=== PATIENT | female | born 1950 ===

== ENCOUNTER 2019-01-19 07:28 | Inpatient (IN) | payer MEDICARE ==
[2019-01-19 07:43] VITALS: BMI 28.3
[2019-01-19 08:28] LABS: BASO # 0.1 K/uL (0.0-0.2); BASO % 0.9 % (0.0-2.0); EOS # 0.9 K/uL (0.0-0.7); HEMOGLOBIN 10.7 g/dL (11.0-16.0); MEAN CORPUSCULAR HEMOGLOBIN 28.3 pg (27.0-31.0); MEAN CORPUSCULAR HGB CONC 32.2 g/dL (33.0-37.0); MEAN PLATELET VOLUME 10.3 fL (7.2-11.7); MONO # 0.4 K/uL (0.0-0.8); MONO % 4.6 % (0.0-10.0); NEUT # 5.4 K/uL (1.8-7.0); NEUT % 61.5 % (50.0-75.0); NRBC % 0.3 % (0.0-2.0); RBC 3.8 Mil/uL (3.80-5.20); WHITE BLOOD COUNT 8.8 K/uL (4.8-10.8)
[2019-01-19 08:30] LABS: INR 0.9
[2019-01-19 08:31] LABS: MEAN CELL VOLUME 87.8 fL (81.0-99.0)
[2019-01-19 08:34] LABS: BLOOD UREA NITROGEN 32 mg/dL (7-17); CALCIUM 9.5 mg/dl (8.6-10.4); GFR NON-AFRICAN AMERICAN 55
[2019-01-19] MEDS ORDERED: Dextrose 50% SYRINGE Inj (50 ml) ONE (08:46)
[2019-01-19 08:50] LABS: PROTHROMBIN TIME 9.8 SECONDS (9.7-12.2)
[2019-01-19] MEDS ORDERED: Verapamil 2 ML ONE (11:00)
[2019-01-19] MEDS ORDERED: Nitroglycerin 50mg in D5W 50 MG/250 ML BOTTLE IV ONE (11:02)
[2019-01-19] MEDS ORDERED: Midazolam 2 MG/2 ML VIAL ONE (11:03)
[2019-01-19] MEDS ORDERED: Lidocaine 1% 20 MG/2 ML PF AMP ONE ×3 (11:10→11:35)
[2019-01-19] MEDS ORDERED: Heparin25000 units/250ml 1/2NS 25,000 UNITS/250 ML BAG IV ONE (12:01)
[2019-01-19] MEDS ORDERED: Heparin25000 units/250ml 1/2NS 25,000 UNITS/250 ML BAG IV PRN (12:37)
[2019-01-19] MEDS ORDERED: Nitroglycerin 50mg in D5W 50 MG/250 ML BOTTLE IV SCH (12:45)
[2019-01-19] MEDS ORDERED: (Novolog) Insulin Aspart, Recombinant 100 u/ml 10 ml vial SC SCH ×2 (12:45→16:30)
--- NOTE | 2019-01-19 12:50 | CP.PCM.CON ---
<Sergey Abdullahi - Last Filed: 01/19/19 20:15> History of Present Illness - History of Present Illness History of Present Illness: ICU Consult Note for Dr. Tram Kirkpatrick This is a 68 y o female with PMhx HTN, DM, HLD who is s/p cardiac cath and IABP insertion today by Dr. Ramos, which demonstrated severe L main disease. Reason for ICU consult was for monitoring post-procedure and plan for pt transfer for urgent CABG to [facility]. Per pt, she was having cardiac cath performed as part of work-up for CAD, denies any symptoms currently. 12-point ROS obtained, otherwise negative as per pt. PMhx: as noted above Allergies: risendronate sodium Current meds: reviewed as per MAR Fam hx: denies Soc hx: denies smoking, EtOH or illicit drug use Review of Systems - Constitutional Constitutional: absent: Chills, Fever, Headache, Lethargy, Malaise - EENT Eyes: absent: Change in Vision - Cardiovascular Cardiovascular: absent: Chest Pain, Diaphoresis, Dyspnea on Exertion, Pain Radiating to Arm/Neck/Jaw, Leg Edema, Palpitations, Pedal Edema - Respiratory Respiratory: absent: Cough, Dyspnea, Wheezing - Gastrointestinal Gastrointestinal: absent: Abdominal Pain, Constipation, Diarrhea, Nausea, Vomiting Past Patient History - Past Medical History & Family History Past Medical History?: Yes - Past Social History Smoking Status: Never Smoked - CARDIAC Hx Cardiac Disorders: Yes Hx Hypercholesterolemia: Yes Hx Hypertension: Yes Other/Comment: HX: ABNORMAL STRESS TEST - PULMONARY Hx Respiratory Disorders: No - NEUROLOGICAL Hx Neurological Disorder: No - HEENT Hx HEENT Problems: Yes Other/Comment: " HAD SURGERY ON MY EARS DUE TO HEARING DIFFICULTY-I HAVE A HEARING AID ON MY LEFT SIDE." - RENAL Hx Chronic Kidney Disease: Yes Hx Kidney Stones: Yes (PASSED ON OWN) - ENDOCRINE/METABOLIC Hx Endocrine Disorders: Yes Hx Diabetes Mellitus Type 2: Yes - HEMATOLOGICAL/ONCOLOGICAL Hx Blood Disorders: No - INTEGUMENTARY Hx Dermatological Problems: No - MUSCULOSKELETAL/RHEUMATOLOGICAL Hx Musculoskeletal Disorders: Yes Hx Osteoporosis: Yes - GASTROINTESTINAL Hx Gastrointestinal Disorders: No - GENITOURINARY/GYNECOLOGICAL Hx Genitourinary Disorders: Yes Hx Urinary Tract Infection: Yes Other/Comment: HX: FIBROID UTERUS - PSYCHIATRIC Hx Psychophysiologic Disorder: No - SURGICAL HISTORY Hx Surgeries: Yes Hx Hysterectomy: Yes Other/Comment: HX: "EAR SURGERY DUE TO HEARING PROBLEM-I HAVE A HEARING AID ON MY LEFT SIDE." - ANESTHESIA Hx Anesthesia: Yes Hx Anesthesia Reactions: No Hx Malignant Hyperthermia: No Has any member of the family had a problem w/ anesthesia?: No Meds Allergies/Adverse Reactions: Allergies Allergy/AdvReac Type Severity Reaction Status Date / Time risedronate sodium Allergy Intermediate RASH Verified 01/19/19 07:43 [From Actonel] - Medications Medications: Current Medications Aspirin (Aspirin Chewable) 81 mg PO DAILY FRANCISCO Heparin Sodium/Sodium Chloride (Heparin 30466 Units/250ml 1/2 Normal Saline) 25,000 units in 250 mls @ 8.437 mls/hr IV .Q24H PRN; Protocol PRN Reason: ADJUST RATE PER PROTOCOL Nitroglycerin/Dextrose (Nitroglycerin 50 Mg/250 Ml D5w) 50 mg in 250 mls @ 1.5 mls/hr IV .Q24H FRANCISCO; Protocol Insulin Aspart (Novolog) 0 unit SC Q6H FRANCISCO; Protocol Rosuvastatin Calcium (Crestor) 40 mg PO HS FRANCISCO Physical Exam - Constitutional Appears: Non-toxic, No Acute Distress - Head Exam Head Exam: ATRAUMATIC, NORMOCEPHALIC - Eye Exam Eye Exam: EOMI, Normal appearance, PERRL - ENT Exam ENT Exam: Mucous Membranes Moist - Respiratory Exam Respiratory Exam: Clear to Auscultation Bilateral, NORMAL BREATHING PATTERN. absent: Rales, Rhonchi, Wheezes - Cardiovascular Exam Cardiovascular Exam: REGULAR RHYTHM, +S1, +S2. absent: Gallop, Rubs, Systolic Murmur - GI/Abdominal Exam GI & Abdominal Exam: Normal Bowel Sounds, Soft. absent: Distended, Organomegaly, Tenderness - Extremities Exam Extremities exam: Positive for: full ROM, normal capillary refill, normal inspection, pedal pulses present. Negative for: pedal edema - Neurological Exam Neurological exam: Alert, CN II-XII Intact, Oriented x3 - Skin Skin Exam: Dry, Intact, Warm Results - Labs Result Diagrams: 01/19/19 08:13 01/19/19 08:13 Labs: Laboratory Results - last 24 hr 01/19/19 01/19/19 01/19/19 08:13 08:13 08:13 WBC 8.8 RBC 3.80 Hgb 10.7 L Hct 33.4 L MCV 87.8 D MCH 28.3 MCHC 32.2 L RDW 15.0 H Plt Count 314 MPV 10.3 Neut % (Auto) 61.5 Lymph % (Auto) 23.0 Weld % (Auto) 4.6 Eos % (Auto) 10.0 H Baso % (Auto) 0.9 Neut # (Auto) 5.4 Lymph # (Auto) 2.0 Weld # (Auto) 0.4 Eos # (Auto) 0.9 H Baso # (Auto) 0.1 PT 9.8 INR 0.9 APTT 39 H Sodium 138 Potassium 4.3 Chloride 105 Carbon Dioxide 25 Anion Gap 12 BUN 32 H Creatinine 1.0 Est GFR ( Amer) > 60 Est GFR (Non-Af Amer) 55 POC Glucose (mg/dL) Random Glucose 65 D Calcium 9.5 01/19/19 08:32 WBC RBC Hgb Hct MCV MCH MCHC RDW Plt Count MPV Neut % (Auto) Lymph % (Auto) Weld % (Auto) Eos % (Auto) Baso % (Auto) Neut # (Auto) Lymph # (Auto) Weld # (Auto) Eos # (Auto) Baso # (Auto) PT INR APTT Sodium Potassium Chloride Carbon Dioxide Anion Gap BUN Creatinine Est GFR ( Amer) Est GFR (Non-Af Amer) POC Glucose (mg/dL) 68 Random Glucose Calcium Assessment & Plan - Assessment and Plan (Free Text) Assessment: This is a 68 y o female with PMhx HTN, DM, HLD who is s/p cardiac cath and IABP insertion today by Dr. Ramos, which demonstrated severe L main disease. Reason for ICU consult was for monitoring post-procedure and plan for pt transfer for urgent CABG to [facility]. Plan: Neuro: -AAOx3, no deficits on exam, cont to monitor Cardio: -S/p cardiac cath and IABP insertion as per Dr. Ramos today, demonstrated L main disease -Pt to be transferred to [facility] for urgent CABG -ASA, Crestor -Nitro drip IV to keep SBP < 140 -Lopressor 25 bid -Losartan 50 daily -Vitals stable, cont to monitor -EKG demonstrates no acute changes -Dr. Ramos consulted, recs appreciated Pulm: -Saturating well on NC, cont to monitor GI: -Protonix -NPO except meds Renal: -BUN/Cr wnl, cont to trend I's/O's Heme: -H/H stable, no leukocytosis, cont to monitor PPX: -Protonix, SCD Pt seen, examined with, and plan discussed with Dr. Tram iKrkpatrick, attending physician. Sergey Abdullahi DO PGY-1, Banking Manager Pager #[phone] <Arlen Kirkpatrick - Last Filed: 01/21/19 16:25> Results - Vital Signs Recent Vital Signs: Last Vital Signs Temp 98 F 01/19/19 16:00 Pulse 61 01/19/19 16:00 Resp 19 01/19/19 16:00 BP 147/50 L 01/19/19 19:14 Pulse Ox 98 01/19/19 16:00 - Labs Result Diagrams: 01/19/19 08:13 01/19/19 08:13 Assessment & Plan - Assessment and Plan (Free Text) Plan: Above patient seen and examined at bedside. Patient being transferred for higher level of care -continue IABP -contineu rx as per cardiology - Date & Time Date: 01/19/19 Time: 21:00
--- NOTE | 2019-01-19 16:20 | CP.PCM.CON ---
History of Present Illness - History of Present Illness History of Present Illness: Patient s/p cath and IABP inserted 1. L Main: 95%, 2. LAD: Being filled retrograde from RCA 3. L Cx: Patent 4. RCA: Mid to distal 80-85% 5. EF: 70%, EDP 28, No A/P: Severe Left Main disease on IABP Transfer for urgent CABG to [facility] Past Patient History - Past Medical History & Family History Past Medical History?: Yes - Past Social History Smoking Status: Never Smoked - CARDIAC Hx Cardiac Disorders: Yes Hx Hypercholesterolemia: Yes Hx Hypertension: Yes Other/Comment: HX: ABNORMAL STRESS TEST - PULMONARY Hx Respiratory Disorders: No - NEUROLOGICAL Hx Neurological Disorder: No - HEENT Hx HEENT Problems: Yes Other/Comment: " HAD SURGERY ON MY EARS DUE TO HEARING DIFFICULTY-I HAVE A HEARING AID ON MY LEFT SIDE." - RENAL Hx Chronic Kidney Disease: Yes Hx Kidney Stones: Yes (PASSED ON OWN) - ENDOCRINE/METABOLIC Hx Endocrine Disorders: Yes Hx Diabetes Mellitus Type 2: Yes - HEMATOLOGICAL/ONCOLOGICAL Hx Blood Disorders: No - INTEGUMENTARY Hx Dermatological Problems: No - MUSCULOSKELETAL/RHEUMATOLOGICAL Hx Musculoskeletal Disorders: Yes Hx Osteoporosis: Yes - GASTROINTESTINAL Hx Gastrointestinal Disorders: No - GENITOURINARY/GYNECOLOGICAL Hx Genitourinary Disorders: Yes Hx Urinary Tract Infection: Yes Other/Comment: HX: FIBROID UTERUS - PSYCHIATRIC Hx Psychophysiologic Disorder: No - SURGICAL HISTORY Hx Surgeries: Yes Hx Hysterectomy: Yes Other/Comment: HX: "EAR SURGERY DUE TO HEARING PROBLEM-I HAVE A HEARING AID ON MY LEFT SIDE." - ANESTHESIA Hx Anesthesia: Yes Hx Anesthesia Reactions: No Hx Malignant Hyperthermia: No Has any member of the family had a problem w/ anesthesia?: No Meds Allergies/Adverse Reactions: Allergies Allergy/AdvReac Type Severity Reaction Status Date / Time risedronate sodium Allergy Intermediate RASH Verified 01/19/19 07:43 [From Actonel] - Medications Medications: Current Medications Aspirin (Aspirin Chewable) 81 mg PO DAILY FRANCISCO Heparin Sodium/Sodium Chloride (Heparin 16086 Units/250ml 1/2 Normal Saline) 25,000 units in 250 mls @ 8.437 mls/hr IV .Q24H PRN; Protocol PRN Reason: ADJUST RATE PER PROTOCOL Nitroglycerin/Dextrose (Nitroglycerin 50 Mg/250 Ml D5w) 50 mg in 250 mls @ 1.5 mls/hr IV .Q24H FRANCISCO; Protocol Insulin Aspart (Novolog) 0 unit SC Q6 FRANCISCO; Protocol Losartan Potassium (Cozaar) 50 mg PO DAILY FRANCISCO Metoprolol Tartrate (Lopressor) 25 mg PO BID FRANCISCO Rosuvastatin Calcium (Crestor) 40 mg PO HS FRANCISCO Results - Labs Result Diagrams: 01/19/19 08:13 01/19/19 08:13 Labs: Laboratory Results - last 24 hr 01/19/19 01/19/19 01/19/19 08:13 08:13 08:13 WBC 8.8 RBC 3.80 Hgb 10.7 L Hct 33.4 L MCV 87.8 D MCH 28.3 MCHC 32.2 L RDW 15.0 H Plt Count 314 MPV 10.3 Neut % (Auto) 61.5 Lymph % (Auto) 23.0 Mckenzie % (Auto) 4.6 Eos % (Auto) 10.0 H Baso % (Auto) 0.9 Neut # (Auto) 5.4 Lymph # (Auto) 2.0 Mckenzie # (Auto) 0.4 Eos # (Auto) 0.9 H Baso # (Auto) 0.1 PT 9.8 INR 0.9 APTT 39 H Sodium 138 Potassium 4.3 Chloride 105 Carbon Dioxide 25 Anion Gap 12 BUN 32 H Creatinine 1.0 Est GFR ( Amer) > 60 Est GFR (Non-Af Amer) 55 POC Glucose (mg/dL) Random Glucose 65 D Calcium 9.5 01/19/19 08:32 WBC RBC Hgb Hct MCV MCH MCHC RDW Plt Count MPV Neut % (Auto) Lymph % (Auto) Mckenzie % (Auto) Eos % (Auto) Baso % (Auto) Neut # (Auto) Lymph # (Auto) Mckenzie # (Auto) Eos # (Auto) Baso # (Auto) PT INR APTT Sodium Potassium Chloride Carbon Dioxide Anion Gap BUN Creatinine Est GFR ( Amer) Est GFR (Non-Af Amer) POC Glucose (mg/dL) 68 Random Glucose Calcium
[2019-01-19] MEDS ORDERED: Dextrose 50% SYRINGE Inj (50 ml) IV PRN (16:25)
[2019-01-19] MEDS ORDERED: Glucagon Recombinant 1 mg Inj IM PRN (16:25)
[2019-01-19 16:32] VITALS: RESP 19; TEMP 98; O2SAT 98
[2019-01-19 17:47] VITALS: PULSE 67
[2019-01-19 19:15] VITALS: BP 147/50
--- NOTE | 2019-01-29 01:05 | CARDCATH ---
PROCEDURE DATE: 01/19/2019 PROCEDURES: 1. Left heart catheterization. 2. Coronary angiogram. 3. Intra-aortic balloon pump insertion. CLINICAL INDICATIONS: 1. Abnormal stress test. 2. Chest pain. 3. Dyspnea. 4. Coronary artery disease. 5. Diabetes. 6. Hyperlipidemia. PERFORMING PHYSICIAN: Enrico Ramos MD DESCRIPTION OF PROCEDURE: After informed consent, the patient was prepped and draped in the usual sterile fashion. Lidocaine 2% was given in the right groin for local anesthesia. Using micropuncture technique, a 6-Lebanese sheath was introduced into right common femoral artery. A JR4 diagnostic catheter was inserted into left ventricle across the aortic valve. LVEDP measured. Contrast was injected and LV angiogram was done. The catheter was pulled back across the aortic valve. Gradient across the aortic valve was measured. Then, the same catheter engaged into right coronary artery. Contrast was injected and right coronary angiogram was done. The catheter was exchanged to JR4 6-Lebanese diagnostic catheter. The catheter engaged into left main coronary artery. Contrast was injected and left coronary angiogram was done. The patient has severe left main critical coronary artery disease. Intra-aortic balloon pump was inserted from the right grain using the existing access. The patient tolerated the procedure well. Postprocedure, radiological supervision and radiological interpretation of the coronary imaging was done. FINDINGS: 1. Left main coronary artery has ostial 90% to 95% stenosis. 2. Left circumflex coronary artery is patent. 3. Proximal LAD has 70% to 80% stenosis. Mid LAD, distal LAD and diagonal branches are patent. 4. Right coronary artery is dominant. Proximal right coronary artery has 50% stenosis. [id number] right coronary artery has a long 80% to 85% stenosis. 5. LV ejection fraction is approximately 70%. No wall motion abnormalities noted. EDP is 14. No gradient across the aortic valve. IMPRESSION: 1. Severe left main coronary artery disease. 2. Severe right coronary artery and LAD disease. 3. The patient has diabetes. PLAN: Due to critical left main disease, the patient was placed on intra-aortic balloon pump. The patient will be transferred for open heart surgery. Enrico Ramos MD [facility] # [id number]
== END 2019-01-19 19:45 | disposition short-term general hospital (02) | DRG 272 ==
LOC: C.CATHLAB 07:28 → C.9S 12:48 → C.9I 14:52
PROVIDERS: ADMIT Internal Medicine Cardiovascular Disease; ATTEND Internal Medicine Cardiovascular Disease
PROC: 5A02210 Assistance with Cardiac Output using Balloon Pump, Continuous (ICD-10-PCS; principal; 2019-01-19)
PROC: 4A023N7 Measurement of Cardiac Sampling and Pressure, Left Heart, Percutaneous Approach (ICD-10-PCS; 2019-01-19)
PROC: B2051ZZ Plain Radiography of Left Heart using Low Osmolar Contrast (ICD-10-PCS; 2019-01-19)
PROC: B2011ZZ Plain Radiography of Multiple Coronary Arteries using Low Osmolar Contrast (ICD-10-PCS; 2019-01-19)
DX: I25.118 Atherosclerotic heart disease of native coronary artery with other forms of angina pectoris (principal); I12.9 Hypertensive chronic kidney disease with stage 1 through stage 4 chronic kidney disease, or unspecified chronic kidney disease; E78.5 Hyperlipidemia, unspecified; E11.22 Type 2 diabetes mellitus with diabetic chronic kidney disease; N18.9 Chronic kidney disease, unspecified; Z95.1 Presence of aortocoronary bypass graft; M81.0 Age-related osteoporosis without current pathological fracture

== ENCOUNTER 2019-02-28 22:11 | Observation (INO) | payer MEDICARE ==
[2019-02-28 22:12] VITALS: BMI 28.3
[2019-02-28] MEDS ORDERED: Sodium Chloride 0.9% 1,000 ML IV ONE (22:43)
[2019-02-28] MEDS ORDERED: (Novolin R) Insulin Human Regular 100 units/ml vial IVP STA (22:44)
--- NOTE | 2019-02-28 22:49 | C.PDOC ---
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 Patient states her blood sugar levels have been uncontrolled over the past year. Patient recently und erwent CABG and was in rehab. While in rehab, patient's sugar levels were poorly controlled and frequently found to be elevated. Patient was discharged from rehab 5 days ago, and states her sugar levels have not been below 500 since discharge. Patient states she has been complaint with insulin as prescribed and occasionally takes extra units without improvement. Last night, patient felt shaky and sweaty, and suspected her blood sugar to be low but did not test her levels. Patient reports symptoms resolved after drinking some apple juice. Today, patient took 35 units of insulin but her sugar levels remained over 600, prompting visit. Patient states she is currently asymptomatic and denies any additional complaints. Time Seen by Provider: 02/28/19 22:24 Chief Complaint (Nursing): High Blood Sugar History Per: Patient History/Exam Limitations: no limitations Onset/Duration Of Symptoms: Days Current Symptoms Are (Timing): Gone Current Diabetic Medications: Insulin Causative (Exacerbating) Factor(s): denies: Missed Taking Medication Additional History Per: Patient Past Medical History Reviewed: Historical Data, Nursing Documentation, Vital Signs Vital Signs: Last Vital Signs Temp 98.3 F 02/28/19 22:35 Pulse 71 02/28/19 22:35 Resp 18 02/28/19 22:35 BP 169/59 H 02/28/19 22:35 Pulse Ox 99 02/28/19 22:35 - Medical History PMH: HTN, Hypercholesterolemia, Kidney Stones (PASSED ON OWN), Osteoporosis, Ch ronic Kidney Disease Surgical History: No Surg Hx - [facility] Procedures ASSIST WITH CARDIAC OUTPUT USING BALLOON PUMP, CONTINUOUS (01/19/19) MEASURE OF CARDIAC SAMPL & PRESSURE, L HEART, PERC APPROACH (01/19/19) PLAIN RADIOGRAPHY OF LEFT HEART USING LOW OSMOLAR CONTRAST (01/19/19) PLAIN RADIOGRAPHY OF MULT COR ART USING L OSM CONTRAST (01/19/19) Family History: States: Unknown Family Hx - Social History Hx Alcohol Use: No Hx Substance Use: No Review Of Systems Constitutional: Positive for: Sweats, Other (elevated blood sugar ) Gastrointestinal: Negative for: Nausea, Vomiting Genitourinary: Negative for: Dysuria, Frequency Physical Exam - Physical Exam Appears: Non-toxic, No Acute Distress Skin: Normal Color, Warm, Dry Head: Atraumatic, Normacephalic Eye(s): bilateral: Normal Inspection Oral Mucosa: Moist Neck: Supple Chest: Symmetrical, No Deformity, No Tenderness, Other (Open wound noted to lower portion of mid-sternal incision with scab formnation. Area was debrided by surgeon this morning. No tenderness or signs of infection noted. ) Cardiovascular: Rhythm Regular, No Murmur Respiratory: Normal Breath Sounds, No Rales, No Rhonchi, No Wheezing Gastrointestinal/Abdominal: Soft, No Tenderness, No Guarding, No Rebound Extremity: Normal ROM, Capillary Refill (less than 2 seconds ) Neurological/Psych: Oriented x3, Normal Speech, Normal Cognition ED Course And Treatment - Laboratory Results Result Diagrams: 02/28/19 22:54 02/28/19 22:54 Lab Interpretation: Abnormal (Glucose 661, pH 7.35, HCO3 22 BUN 56, Cr 1.7) ECG: Interpreted By Me ECG Rhythm: Sinus Rhythm (LVH with repolarization abnormality), ST/T Changes (inverted T waves I, II, AVL, AVF, V4-6) ECG Interpretation: Abnormal O2 Sat by Pulse Oximetry: 99 Pulse Ox Interpretation: Normal Progress Note: Bloodwork, urinalysis, and EKG ordered and reviewed. Insulin IV and IV Fluids given. Reevaluation Time: 23:52 Reassessment Condition: Improved - Physician Consult Information Outcome Of Conversation: Case discussed with Dr Ryan and Dr Coronado. Patient not currently acidotic and does not require ICU care. Will admit to tele. Disposition - Disposition Disposition: HOSPITALIZED Disposition Time: 23:52 Condition: FAIR - POA Present On Arrival: Poor Glycemic Control - Clinical Impression Clinical Impression: Hyperglycemia, Diabetic complication - Scribe Statement The provider has reviewed the documentation as recorded by the Scribe (Marialuisa Kirkpatrick) Provider Attestation: All medical record entries made by the Scribe were at my direction and pers onally dictated by me. I have reviewed the chart and agree that the record accurately reflects my personal performance of the history, physical exam, medical decision making, and the department course for this patient. I have also personally directed, reviewed, and agree with the discharge instructions and disposition.
[2019-02-28 22:58] LABS: BASO # 0.1 K/uL (0.0-0.2); BASO % 1.1 % (0.0-2.0); EOS % 0.3 % (0.0-4.0); HEMOGLOBIN 12.2 g/dL (11.0-16.0); LYMPH % 12.6 % (20.0-40.0); MEAN CORPUSCULAR HEMOGLOBIN 31.7 pg (27.0-31.0); MEAN CORPUSCULAR HGB CONC 33.7 g/dL (33.0-37.0); MEAN PLATELET VOLUME 9.4 fL (7.2-11.7); MONO # 0.6 K/uL (0.0-0.8); MONO % 7.2 % (0.0-10.0); NEUT # 6.4 K/uL (1.8-7.0); NEUT % 78.8 % (50.0-75.0); NRBC % 0.1 % (0.0-2.0); RBC 3.86 Mil/uL (3.80-5.20); RED CELL DISTRIBUTION WIDTH 16.1 % (11.5-14.5); WHITE BLOOD COUNT 8.1 K/uL (4.8-10.8)
[2019-02-28] MEDS ORDERED: (Novolin R) Insulin Human Regular 100 units/ml vial ONE (22:58)
[2019-02-28 23:00] LABS: MEAN CELL VOLUME 94.1 fL (81.0-99.0)
[2019-02-28 23:20] LABS: ALB/GLOB RATIO 1.3 (1.0-2.1); ALBUMIN 4.8 g/dL (3.5-5.0); CALCIUM 9.9 mg/dl (8.6-10.4)
[2019-02-28 23:44] LABS: VENOUS BLOOD GAS BASE EXCESS -1.5 mmol/L (0.0-2.0); VENOUS BLOOD GAS PCO2 44 mmHg (40-60); VENOUS BLOOD GAS PO2 30 mm/Hg (30-55); VENOUS BLOOD PH 7.35 (7.32-7.43)
[2019-03-01] MEDS ORDERED: Glucagon Recombinant 1 mg Inj IM PRN (00:43)
[2019-03-01] MEDS ORDERED: Dextrose 50% SYRINGE Inj (50 ml) IV PRN (00:43)
[2019-03-01] MEDS ORDERED: Insulin Detemir 100 units/ml Vial (Levemir) SC ONE (00:47)
--- NOTE | 2019-03-01 00:59 | CP.PCM.HP ---
<Jimenez Nelson - Last Filed: 03/01/19 06:49> History of Present Illness - History of Present Illness History of Present Illness: 68 year old female with a past medical history of IDDM, cad (s/p CABG), hypertension, and hyperlipidemia who was brought in by EMS after having elevated blood sugars that began this morning. Per patient, she woke up this morning and checked her blood sugar around 9a.m. that read high. She reports she took 15 units of Humalog after that. She continued to check her blood sugar every hour for the remainder of the day and each time it read "high". She was with her sister and her son who urged her to go to the hospital as a result. In conjunction with the elevated blood sugar she also noted polyuria and polydypsia that began around the same time as her blood sugars began to read as high. Of note, patient recently underwent a CABG at [facility] for left main artery disease. While in Cardiac rehab, patient states the doctors there changed her medications around, however was unable to tell me the names during the interview. She denies any fevers, chills, nausea, vomiting, chest pain, abdominal pain, dizziness, syncopal episodes, or any other complaints. PMD: Alek Make Up Editor: Dr. Bennett Medical history iddm, cad, htn, hld Allergies: risdronate sodium Medications: At one point taking Humalog. Uses [facility]. Surgical history: CABG January 2019 [facility]. Intraortic balloon pump Social history: Denies smoking and alcohol abuse. Denies illicit drug use. Lives in [place] with . 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 absent: Chest Pain, Claudication, Orthopnea, Palpitations, Syncope - Respiratory Respiratory: absent: Cough, Dyspnea, Hemoptysis, Snoring - Gastrointestinal Gastrointestinal: Constipation. absent: Belching, Bloating, Diarrhea, Early Satiety, Melena, Nausea - Musculoskeletal Musculoskeletal: absent: Arthralgias, Back Pain, Deformity, Neck Pain - Integumentary Integumentary: absent: Change in Hair, Lesions, Skin Pain, Swelling - Neurological Neurological: absent: Numbness, Tingling, Tremor, Vertigo, Weakness - Endocrine Endocrine: Polydipsia, Polyuria. absent: Palpitations - Hematologic/Lymphatic Hematologic: absent: Easy Bleeding, Easy Bruising Past Patient History - Past Medical History & Family History Past Medical History?: Yes - Past Social History Smoking Status: Never Smoked - CARDIAC Hx Hypercholesterolemia: Yes Hx Hypertension: Yes - PULMONARY Hx Respiratory Disorders: No - NEUROLOGICAL Hx Neurological Disorder: No - HEENT Hx HEENT Problems: Yes Other/Comment: " HAD SURGERY ON MY EARS DUE TO HEARING DIFFICULTY-I HAVE A HEARING AID ON MY LEFT SIDE." - RENAL Hx Chronic Kidney Disease: Yes Hx Kidney Stones: Yes (PASSED ON OWN) - ENDOCRINE/METABOLIC Hx Endocrine Disorders: Yes Hx Diabetes Mellitus Type 2: Yes - HEMATOLOGICAL/ONCOLOGICAL Hx Blood Disorders: No - INTEGUMENTARY Hx Dermatological Problems: No - MUSCULOSKELETAL/RHEUMATOLOGICAL Hx Osteoporosis: Yes - GASTROINTESTINAL Hx Gastrointestinal Disorders: No - GENITOURINARY/GYNECOLOGICAL Hx Genitourinary Disorders: Yes Hx Urinary Tract Infection: Yes Other/Comment: HX: FIBROID UTERUS - PSYCHIATRIC Hx Substance Use: No - SURGICAL HISTORY Hx Surgeries: Yes Hx Hysterectomy: Yes Hx Open Heart Surgery: Yes () Other/Comment: HX: "EAR SURGERY DUE TO HEARING PROBLEM-I HAVE A HEARING AID ON MY LEFT SIDE." - ANESTHESIA Hx Anesthesia: Yes Hx Anesthesia Reactions: No Hx Malignant Hyperthermia: No Meds Allergies/Adverse Reactions: Allergies Allergy/AdvReac Type Severity Reaction Status Date / Time risedronate sodium Allergy Intermediate RASH Verified 02/28/19 22:35 [From Actonel] Physical Exam - Head Exam Head Exam: ATRAUMATIC, NORMAL INSPECTION, NORMOCEPHALIC - Eye Exam Eye Exam: EOMI, Normal appearance, PERRL Pupil Exam: NORMAL ACCOMODATION, PERRL. absent: Miosis, Mydriatic - ENT Exam ENT Exam: Mucous Membranes Moist, Normal Exam - Neck Exam Neck exam: Positive for: Normal Inspection - Respiratory Exam Respiratory Exam: Clear to Auscultation Bilateral, NORMAL BREATHING PATTERN. absent: Chest Wall Tenderness, Decreased Breath Sounds, Rhonchi, Wheezes, Respiratory Distress - Cardiovascular Exam Cardiovascular Exam: REGULAR RHYTHM, +S1, +S2. absent: Tachycardia, JVD, RRR - GI/Abdominal Exam GI & Abdominal Exam: Normal Bowel Sounds, Soft. absent: Guarding, Hernia, Organomegaly, Pulsatile Mass - Extremities Exam Extremities exam: Positive for: normal inspection. Negative for: joint swelling, normal capillary refill - Back Exam Back exam: NORMAL INSPECTION. absent: FULL ROM, muscle spasm - Neurological Exam Neurological exam: Alert, CN II-XII Intact, Oriented x3, Reflexes Normal - Psychiatric Exam Psychiatric exam: Normal Affect, Normal Mood - Skin Skin Exam: Dry, Normal Color, Warm Additional comments: CABG scare midline on anterior chest. Superior aspect healing nicely. Inferior aspect has scab present. Results - Vital Signs Recent Vital Signs: Last Vital Signs Temp 98.3 F 03/01/19 00:10 Pulse 76 03/01/19 00:10 Resp 16 03/01/19 00:10 BP 149/55 L 03/01/19 00:10 Pulse Ox 97 03/01/19 00:10 - Labs Result Diagrams: 02/28/19 22:54 02/28/19 22:54 Labs: Laboratory Results - last 24 hr 02/28/19 02/28/19 02/28/19 22:25 22:54 22:54 WBC 8.1 RBC 3.86 Hgb 12.2 Hct 36.4 MCV 94.1 D MCH 31.7 H MCHC 33.7 RDW 16.1 H Plt Count 405 H MPV 9.4 Neut % (Auto) 78.8 H Lymph % (Auto) 12.6 L [place] % (Auto) 7.2 Eos % (Auto) 0.3 Baso % (Auto) 1.1 Neut # (Auto) 6.4 Lymph # (Auto) 1.0 [place] # (Auto) 0.6 Eos # (Auto) 0.0 Baso # (Auto) 0.1 pO2 VBG pH VBG pCO2 VBG HCO3 VBG Total CO2 VBG O2 Sat (Calc) VBG Base Excess VBG Potassium Glucose Lactate Crit Value Called To Crit Value Called By Crit Value Read Back Blood Gas Notified Time Sodium 123 L Potassium 5.7 H Chloride 84 L Carbon Dioxide 22 Anion Gap 23 H BUN 56 H Creatinine 1.7 H Est GFR ( Amer) 36 Est GFR (Non-Af Amer) 30 POC Glucose (mg/dL) > 500 H* Random Glucose 661 H* D Calcium 9.9 Total Bilirubin 1.4 H AST 65 H ALT 21 Alkaline Phosphatase 315 H Total Protein 8.6 H Albumin 4.8 Globulin 3.8 Albumin/Globulin Ratio 1.3 Venous Blood Potassium B-Hydroxybutyrate 0.82 H 02/28/19 02/28/19 23:24 23:30 WBC RBC Hgb Hct MCV MCH MCHC RDW Plt Count MPV Neut % (Auto) Lymph % (Auto) [place] % (Auto) Eos % (Auto) Baso % (Auto) Neut # (Auto) Lymph # (Auto) [place] # (Auto) Eos # (Auto) Baso # (Auto) pO2 30 VBG pH 7.35 VBG pCO2 44 VBG HCO3 22.6 VBG Total CO2 25.7 VBG O2 Sat (Calc) 56.5 VBG Base Excess -1.5 L VBG Potassium 4.1 Glucose 514 H* Lactate 3.1 H Crit Value Called To Dr marroquin Crit Value Called By Veda hall rt Crit Value Read Back Y Blood Gas Notified Time 2344 Sodium 127.0 L Potassium Chloride 88.0 L Carbon Dioxide Anion Gap BUN Creatinine Est GFR ( Amer) Est GFR (Non-Af Amer) POC Glucose (mg/dL) > 500 H* Random Glucose Calcium Total Bilirubin AST ALT Alkaline Phosphatase Total Protein Albumin Globulin Albumin/Globulin Ratio Venous Blood Potassium 4.1 B-Hydroxybutyrate Assessment & Plan - Assessment and Plan (Free Text) Assessment: 68 year old female with a past medical history of IDDM, cad (s/p CABG), hypertension, and hyperlipidemia who was brought in by EMS after having elevated blood sugars that began this morning. Per patient, she woke up this morning and checked her blood sugar around 9a.m. that read high. Plan: 1.DKA -Blood glucose 661 on admission -VBG: pH:7.35, Glucose: 514, Lactae:3.1 -beta-hydroxybutryate:.82 on admission -Corrected Na on admission 131.98 -Corrected anion gap:25 Given 10 Units of Novolin and 1 Liter of NS fluids in the E.D. Per E.D. note, Charrer Dr. Coronado made aware of patient, however since patient wasn't acidotic, he didn't require admission to the unit. Hemoglobin a1c ordered. Will f/u with results. Medications: Levein 10 units SC ONCE ISS High q4 Accu checks q4 Neuro checks q4 2.hx of CABG Previous EKG 09/2015: Twave inversions Leads I, II, aVL, V4-V6 EKG on admission: sinus rhythm, baseline T wave inversions I, II, aVL, V4-6, new in aVF -Discharged from Cardiac rehab last Tuesday. -Recently completed 3 weeks of Cardiac rehab and released last Tuesday. -Will confirm medications with Son or in the A.M. Medications: Aspirin 81mg PO DAILY 3.hx. of HLD -Continue Rosuvastatin 5mg PO HS 4.hx of CAD -Lipid panel ordered. Will f/u with results. -Continue 81mg PO DAILY -Continue Rosuvastatin 5mg PO HS -Valsartan/hydrchlorothiazide 1 tab PO DAILY 5. Elevated AST -Hep panel ordered. Will f/u with results. 6. Scab on inferior part of CABG scar. -Patient seen at [facility] for scab. Patient reports it being cleaned there. -Wound care nursing ordrered. PPX -Omeprazole -Heparin -NPO diet -NS @100mls/hr Plan discussed with attending Dr. Ryan. Jimenez Nelson, PGY-2 <Marlo Ryan - Last Filed: 03/01/19 06:55> Results - Vital Signs Recent Vital Signs: Last Vital Signs Temp 98.1 F 03/01/19 04:30 Pulse 73 03/01/19 04:30 Resp 20 03/01/19 04:30 BP 150/68 03/01/19 04:30 Pulse Ox 97 03/01/19 04:30 - Labs Result Diagrams: 02/28/19 22:54 02/28/19 22:54 Labs: Laboratory Results - last 24 hr 02/28/19 02/28/19 02/28/19 22:25 22:54 22:54 WBC 8.1 RBC 3.86 Hgb 12.2 Hct 36.4 MCV 94.1 D MCH 31.7 H MCHC 33.7 RDW 16.1 H Plt Count 405 H MPV 9.4 Neut % (Auto) 78.8 H Lymph % (Auto) 12.6 L [place] % (Auto) 7.2 Eos % (Auto) 0.3 Baso % (Auto) 1.1 Neut # (Auto) 6.4 Lymph # (Auto) 1.0 [place] # (Auto) 0.6 Eos # (Auto) 0.0 Baso # (Auto) 0.1 pO2 VBG pH VBG pCO2 VBG HCO3 VBG Total CO2 VBG O2 Sat (Calc) VBG Base Excess VBG Potassium Glucose Lactate Crit Value Called To Crit Value Called By Crit Value Read Back Blood Gas Notified Time Sodium 123 L Potassium 5.7 H Chloride 84 L Carbon Dioxide 22 Anion Gap 23 H BUN 56 H Creatinine 1.7 H Est GFR ( Amer) 36 Est GFR (Non-Af Amer) 30 POC Glucose (mg/dL) > 500 H* Random Glucose 661 H* D Calcium 9.9 Magnesium 1.8 Total Bilirubin 1.4 H AST 65 H ALT 21 Alkaline Phosphatase 315 H Total Protein 8.6 H Albumin 4.8 Globulin 3.8 Albumin/Globulin Ratio 1.3 Venous Blood Potassium B-Hydroxybutyrate 0.82 H 02/28/19 02/28/19 03/01/19 23:24 23:30 02:00 WBC RBC Hgb Hct MCV MCH MCHC RDW Plt Count MPV Neut % (Auto) Lymph % (Auto) [place] % (Auto) Eos % (Auto) Baso % (Auto) Neut # (Auto) Lymph # (Auto) [place] # (Auto) Eos # (Auto) Baso # (Auto) pO2 30 VBG pH 7.35 VBG pCO2 44 VBG HCO3 22.6 VBG Total CO2 25.7 VBG O2 Sat (Calc) 56.5 VBG Base Excess -1.5 L VBG Potassium 4.1 Glucose 514 H* Lactate 3.1 H Crit Value Called To Dr marroquin Crit Value Called By Veda hall rt Crit Value Read Back Y Blood Gas Notified Time 2344 Sodium 127.0 L Potassium Chloride 88.0 L Carbon Dioxide Anion Gap BUN Creatinine Est GFR ( Amer) Est GFR (Non-Af Amer) POC Glucose (mg/dL) > 500 H* 283 H Random Glucose Calcium Magnesium Total Bilirubin AST ALT Alkaline Phosphatase Total Protein Albumin Globulin Albumin/Globulin Ratio Venous Blood Potassium 4.1 B-Hydroxybutyrate 03/01/19 04:32 WBC RBC Hgb Hct MCV MCH MCHC RDW Plt Count MPV Neut % (Auto) Lymph % (Auto) [place] % (Auto) Eos % (Auto) Baso % (Auto) Neut # (Auto) Lymph # (Auto) [place] # (Auto) Eos # (Auto) Baso # (Auto) pO2 VBG pH VBG pCO2 VBG HCO3 VBG Total CO2 VBG O2 Sat (Calc) VBG Base Excess VBG Potassium Glucose Lactate Crit Value Called To Crit Value Called By Crit Value Read Back Blood Gas Notified Time Sodium Potassium Chloride Carbon Dioxide Anion Gap BUN Creatinine Est GFR ( Amer) Est GFR (Non-Af Amer) POC Glucose (mg/dL) 114 H Random Glucose Calcium Magnesium Total Bilirubin AST ALT Alkaline Phosphatase Total Protein Albumin Globulin Albumin/Globulin Ratio Venous Blood Potassium B-Hydroxybutyrate Attending/Attestation - Attestation I have personally seen and examined this patient.: Yes I have fully participated in the care of the patient.: Yes I have reviewed all pertinent clinical information: Yes Notes (Text): Patient seen and examined with the residents, agree with above except: Presenting with hyperglycemia without ketosis (bicar 22); given Regular insulin in the ER Starting on sliding scale coverage with improvement of blood sugars. Start on diabetic diet. Will need her diabetes medications dosing corrected on discharge to optimize glycemic control.
[2019-03-01] MEDS ORDERED: Sodium Chloride 0.9% 1,000 ML IV SCH (03:00)
[2019-03-01] MEDS: (Novolin R) Insulin Human Regular 100 units/ml vial SC SCH ×4 (04:35→17:16)
--- NOTE | 2019-03-01 07:31 | RAD ---
Date of service: 03/01/2019 HISTORY: previous cardiac hx COMPARISON: No prior. TECHNIQUE: 1 view obtained. FINDINGS: LUNGS: Asymmetrically elevated left hemidiaphragm-possible left pleural effusion with or without some compressive atelectasis here both findings are minimal-mild. Chronicity unknown. PLEURA: As above. No pneumothorax. Left apical pleural thickening. CARDIOVASCULAR: There is presence of aortic atherosclerotic calcification on x-ray. Mild cardiomegaly Possible minimal pulmonary venous congestion. Midline intact sternal wires. OSSEOUS STRUCTURES: Thoraco lumbar spondylosis. Bilateral shoulder arthrosis VISUALIZED UPPER ABDOMEN: Normal. OTHER FINDINGS: None. IMPRESSION: Asymmetric elevated left hemidiaphragm-here minimal left pleural effusion with minimal compressive atelectasis possible. Comparison with priors recommended. Atherosclerotic vascular disease. Mild cardiomegaly. Possible concomitant pulmonary venous congestion.
--- NOTE | 2019-03-01 07:46 | CP.PCM.PN ---
Subjective - Date & Time of Evaluation Date of Evaluation: 03/01/19 Time of Evaluation: 07:46 - Subjective Subjective: PGY-1 Marifer Cueva D.O. Medicine progress note for Dr. Oden's service: Patient was seen and examined this morning. Patient says she is feeling better than yesterday but still "a little bad." She has a decreased appetite. She denies [place], vision changes, chest pain, palpitations, N/V/D/C. She says that she is unsure of her medications but that her son picked up her prescriptions for her last week. Confirmed medications with patient's pharmacy. Objective - Vital Signs/Intake and Output Vital Signs (last 24 hours): Temp Pulse Resp BP Pulse Ox 98.1 F 73 20 150/68 97 03/01/19 04:30 03/01/19 04:30 03/01/19 04:30 03/01/19 04:30 03/01/19 04:30 - Medications Medications: Current Medications Aspirin (Ecotrin) 81 mg PO DAILY [facility] Dextrose (Dextrose 50% Inj) 0 ml IV STAT PRN; Protocol PRN Reason: Hypoglycemia Protocol Dextrose (Glutose 15) 0 gm PO ONCE PRN; Protocol PRN Reason: Hypoglycemia Protocol Glucagon (Glucagen Diagnostic Kit) 0 mg IM STAT PRN; Protocol PRN Reason: Hypoglycemia Protocol Heparin Sodium (Porcine) (Heparin) 5,000 units SC Q12 [facility] Hydrochlorothiazide (Microzide) 12.5 mg PO DAILY [facility] Dextrose (Dextrose 5% In Water 1000 Ml) 1,000 mls @ 0 mls/hr IV .Q0M PRN; Protocol PRN Reason: Hypoglycemia Protocol Sodium Chloride (Sodium Chloride 0.9%) 1,000 mls @ 100 mls/hr IV .Q10H [facility] Last Admin: 03/01/19 04:33 Dose: 100 mls/hr Insulin Human Regular (Novolin R) 0 unit SC Q4 [facility]; Protocol Last Admin: 03/01/19 04:35 Dose: Not Given Losartan Potassium (Cozaar) 100 mg PO DAILY [facility] Pantoprazole Sodium (Protonix Ec Tab) 20 mg PO DAILY [facility] Rosuvastatin Calcium (Crestor) 5 mg PO HS [facility] - Labs Labs: 02/28/19 22:54 02/28/19 22:54 - Constitutional Appears: Non-toxic, No Acute Distress - Head Exam Head Exam: ATRAUMATIC, NORMAL INSPECTION - Eye Exam Eye Exam: EOMI, Normal appearance - ENT Exam ENT Exam: Mucous Membranes Moist - Neck Exam Neck Exam: Normal Inspection - Respiratory Exam Respiratory Exam: Clear to Ausculation Bilateral, NORMAL BREATHING PATTERN - Cardiovascular Exam Cardiovascular Exam: RRR, +S1, +S2 - GI/Abdominal Exam GI & Abdominal Exam: Soft. absent: Distended, Tenderness - Extremities Exam Extremities Exam: Normal Inspection - Back Exam Back Exam: NORMAL INSPECTION - Neurological Exam Neurological Exam: Alert, Awake, CN II-XII Intact, Normal Gait, Oriented x3 - Psychiatric Exam Psychiatric exam: Normal Affect, Normal Mood - Skin Skin Exam: Dry, Normal Color, Warm Assessment and Plan - Assessment and Plan (Free Text) Assessment: Patient is a 68 yo female with diabetes, CAD s/p CABG, and HLD who presented with DKA. Patient states that she just finished cardiac rehab, and her insulin regimen was changed because of her CABG. Plan: Diabetic ketoacidosis, acute, resolved - Blood glucose 661 on admission - VBG: pH: 7.35 - Beta-hydroxybutryate 0.82 on admission - Lactate 3.1--> 1.3 - Corrected Na on admission 131.98 - Corrected anion gap 25--> 12 - UA: 3+ glucose, neg ketones - Given 10 Units of Novolin and 1 Liter of NS fluids in the ED - Per ED note, Departure Clerk Dr. Coronado made aware of patient, however since patient wasn't acidotic, he didn't require admission to the unit. - [facility] 8[facility]6 [facility] - Hypoglycemia protocol - Levemir 10 units QAM, 20 units QHS - Novolog 5 units ACTID - ISS low - Endocrinology consulted (Donald) Coronary artery disease s/p CABG in 01/2019 - EKG 09/2015: T wave inversions Leads I, II, aVL, V4-V6 - EKG on admission: sinus rhythm, baseline T wave inversions I, II, aVL, V4-6, new in aVF - Discharged from cardiac rehab last Tuesday - ASA 81 mg PO daily - Plavix 75 mg PO daily Hypertension, chronic - HCTZ 12.5 mg PO daily - Losartan 100 mg PO daily - Lasix 40 mg PO daily - KCl 10 mEq PO daily Hyperlipidemia, chronic - TG 164, choles 252, LDL 155, HDL 54 - Rosuvastatin 5 mg PO QHS Ppx: VTE: SCDs, Heparin 5000 units SC Q12H GI: Protonix 20 mg PO daily Diet: Diabetic Code status: full code Dispo: Patient's blood glucose continues to fluctuate- will continue to monitor on new insulin regimen. Case discussed with attending, Dr. Oden.
[2019-03-01 08:12] LABS: BASO # 0.1 K/uL (0.0-0.2); MONO # 0.7 K/uL (0.0-0.8); NEUT # 4.3 K/uL (1.8-7.0); RED CELL DISTRIBUTION WIDTH 15.9 % (11.5-14.5)
[2019-03-01 08:21] LABS: BASO % 1.6 % (0.0-2.0); EOS # 0.3 K/uL (0.0-0.7); EOS % 3.5 % (0.0-4.0); LYMPH # 2.3 K/uL (1.0-4.3); LYMPH % 29.7 % (20.0-40.0); MEAN CELL VOLUME 92.4 fL (81.0-99.0); MEAN CORPUSCULAR HEMOGLOBIN 31.6 pg (27.0-31.0); MEAN CORPUSCULAR HGB CONC 34.2 g/dL (33.0-37.0); MEAN PLATELET VOLUME 8.8 fL (7.2-11.7); MONO % 9.6 % (0.0-10.0); NEUT % 55.6 % (50.0-75.0); RBC 3.49 Mil/uL (3.80-5.20); WHITE BLOOD COUNT 7.7 K/uL (4.8-10.8)
[2019-03-01 08:29] LABS: HDL CHOLESTEROL 54 mg/dL (30-70)
[2019-03-01 08:30] LABS: ALB/GLOB RATIO 1.3 (1.0-2.1); CALCIUM 9.5 mg/dl (8.6-10.4)
[2019-03-01 08:42] LABS: LDL CHOLESTEROL 155 mg/dL (0-129)
[2019-03-01 08:59] LABS: HEPATITIS B SURFACE AG Negative (NEGATIVE)
[2019-03-01 09:05] LABS: HEPATITIS A IGM NEGATIVE (NEGATIVE); HEPATITIS B CORE AB NEGATIVE (NEGATIVE)
[2019-03-01 09:16] LABS: HEPATITIS C ANTIBODY NEGATIVE (NEGATIVE)
[2019-03-01] MEDS: Pantoprazole 20 mg EC Tab PO SCH (11:00)
[2019-03-01] MEDS ORDERED: Potassium Chloride 20 mEq ER Tab PO ONE (12:00)
[2019-03-01 12:25] LABS: SQUAMOUS EPITHIAL 2 /hpf (0-5); URINE BILIRUBIN NEGATIVE (NEGATIVE); URINE BLOOD NEGATIVE (NEGATIVE); URINE CLARITY Clear (Clear); URINE COLOR Yellow (YELLOW); URINE GLUCOSE (UA) 3+ mg/dL (Normal); URINE LEUKOCYTE ESTERASE NEG Leu/uL (Negative); URINE PROTEIN NEGATIVE (NEGATIVE); URINE UROBILINOGEN NORMAL mg/dL (0.2-1.0)
[2019-03-01] MEDS ORDERED: Sodium Chloride 0.45% 1,000 ML IV SCH (17:30)
--- NOTE | 2019-03-01 19:35 | CARD ---
APPROVED REPORT Date of service: 02/28/2019 EKG Measurement Heart [id number] <Conclusion> Normal sinus rhythm Possible Left atrial enlargement Left ventricular hypertrophy with repolarization abnormality Abnormal ECG
[2019-03-01] MEDS: (Novolog) Insulin Aspart, Recombinant 100 u/ml 10 ml vial SC SCH (21:29)
[2019-03-01] MEDS ORDERED: Insulin Detemir 100 units/ml Vial (Levemir) SC SCH (22:00)
[2019-03-02 01:06] VITALS: RESP 20
--- NOTE | 2019-03-02 07:29 | CP.PCM.PN ---
Objective - Vital Signs/Intake and Output Vital Signs (last 24 hours): Temp Pulse Resp BP Pulse Ox 98.1 F 65 20 133/65 96 03/02/19 06:00 03/02/19 06:00 03/02/19 06:00 03/02/19 06:00 03/02/19 06:00 - Medications Medications: Current Medications Amlodipine Besylate (Norvasc) 10 mg PO DAILY [facility] Aspirin (Ecotrin) 81 mg PO DAILY [facility] Last Admin: 03/01/19 11:01 Dose: 81 mg Clopidogrel Bisulfate (Plavix) 75 mg PO DAILY [facility] Last Admin: 03/01/19 12:06 Dose: 75 mg Dextrose (Dextrose 50% Inj) 0 ml IV STAT PRN; Protocol PRN Reason: Hypoglycemia Protocol Dextrose (Glutose 15) 0 gm PO ONCE PRN; Protocol PRN Reason: Hypoglycemia Protocol Furosemide (Lasix) 40 mg PO DAILY [facility] Glucagon (Glucagen Diagnostic Kit) 0 mg IM STAT PRN; Protocol PRN Reason: Hypoglycemia Protocol Heparin Sodium (Porcine) (Heparin) 5,000 units SC Q12 [facility] Last Admin: 03/01/19 21:36 Dose: 5,000 units Hydralazine HCl (Apresoline) 50 mg PO Q8H [facility] Last Admin: 03/02/19 06:01 Dose: 50 mg Dextrose (Dextrose 5% In Water 1000 Ml) 1,000 mls @ 0 mls/hr IV .Q0M PRN; Juan Pablo col PRN Reason: Hypoglycemia Protocol Sodium Chloride (Sodium Chloride 0.45%) 1,000 mls @ 40 mls/hr IV .Q24H [facility] Stop: 03/02/19 17:30 Last Admin: 03/01/19 17:28 Dose: 40 mls/hr Insulin Aspart (Novolog) 0 unit SC ACHS [facility]; Protocol Last Admin: 03/01/19 21:29 Dose: Not Given Insulin Aspart (Novolog) 5 unit SC AC [facility] Insulin Detemir (Levemir) 20 unit SC HS [facility] Last Admin: 03/01/19 21:35 Dose: 20 unit Insulin Detemir (Levemir) 10 unit SC ACB [facility] Metoprolol Tartrate (Lopressor) 100 mg PO BID [facility] Last Admin: 03/01/19 20:15 Dose: 100 mg Mupirocin (Bactroban Ointment) 1 gm TOP BID [facility] Last Admin: 03/01/19 17:57 Dose: Not Given Pantoprazole Sodium (Protonix Ec Tab) 20 mg PO DAILY [facility] Last Admin: 03/01/19 11:00 Dose: 20 mg Potassium Chloride (Klor-Con 10) 10 meq PO BRK [facility] Rosuvastatin Calcium (Crestor) 20 mg PO HS [facility] Last Admin: 03/01/19 21:36 Dose: 20 mg - Labs Labs: 03/01/19 07:57 03/01/19 07:57
[2019-03-02] MEDS ORDERED: Insulin Detemir 100 units/ml Vial (Levemir) SC SCH (07:30)
[2019-03-02] MEDS ORDERED: Potassium Chloride 10 mEq ER Tab PO SCH (08:00)
[2019-03-02 08:24] LABS: BASO # 0.1 K/uL (0.0-0.2); BASO % 1.8 % (0.0-2.0); EOS # 0.2 K/uL (0.0-0.7); EOS % 3.8 % (0.0-4.0); HEMOGLOBIN 10.8 g/dL (11.0-16.0); LYMPH # 1.2 K/uL (1.0-4.3); LYMPH % 20.9 % (20.0-40.0); MEAN CELL VOLUME 93.8 fL (81.0-99.0); MEAN CORPUSCULAR HEMOGLOBIN 31.9 pg (27.0-31.0); MONO # 0.5 K/uL (0.0-0.8); MONO % 8.9 % (0.0-10.0); NEUT # 3.7 K/uL (1.8-7.0); NEUT % 64.6 % (50.0-75.0); NRBC % 0.1 % (0.0-2.0); RBC 3.4 Mil/uL (3.80-5.20); RED CELL DISTRIBUTION WIDTH 16.1 % (11.5-14.5); WHITE BLOOD COUNT 5.7 K/uL (4.8-10.8)
[2019-03-02] MEDS: (Novolog) Insulin Aspart, Recombinant 100 u/ml 10 ml vial SC SCH ×6 (08:30→16:56)
[2019-03-02 08:53] LABS: ALB/GLOB RATIO 1.2 (1.0-2.1); ALBUMIN 3.6 g/dL (3.5-5.0); CALCIUM 9.6 mg/dl (8.6-10.4)
[2019-03-02] MEDS: Pantoprazole 20 mg EC Tab PO SCH (09:22)
--- NOTE | 2019-03-02 17:20 | CP.PCM.DIS ---
Provider - Provider Date of Admission: 02/28/19 23:53 Attending physician: Juan R Oden MD Primary care physician: Dr. Gaston Consults: 03/01/19 01:43 Nursing Referral for Wound Care Routine Comment: Physician Instructions: Reason For Exam: S/P CABG incision 03/01/19 11:53 Endocrinology Consult Routine Comment: Consulting Provider: Maryam Bennett Consulting Physician: Maryam Bennett Reason for Consult: uncontrolled DM,hyperglycemia Time Spent in preparation of Discharge (in minutes): 40 Diagnosis - Discharge Diagnosis (1) DKA (diabetic ketoacidosis) Status: Acute Comment: Adjusted insulin regimine per endo, blood sugars controlled Hospital Course - Lab Results Lab Results: Most Recent Lab Values WBC 5.7 K/uL (4.8-10.8) 03/02/19 08:08 RBC 3.40 Mil/uL (3.80-5.20) L 03/02/19 08:08 Hgb 10.8 g/dL (11.0-16.0) L 03/02/19 08:08 Hct 31.9 % (34.0-47.0) L 03/02/19 08:08 MCV 93.8 fL (81.0-99.0) 03/02/19 08:08 MCH 31.9 pg (27.0-31.0) H 03/02/19 08:08 MCHC 34.0 g/dL (33.0-37.0) 03/02/19 08:08 RDW 16.1 % (11.5-14.5) H 03/02/19 08:08 Plt Count 346 K/uL (130-400) 03/02/19 08:08 MPV 9.0 fL (7.2-11.7) 03/02/19 08:08 Neut % (Auto) 64.6 % (50.0-75.0) 03/02/19 08:08 Lymph % (Auto) 20.9 % (20.0-40.0) 03/02/19 08:08 Mercer % (Auto) 8.9 % (0.0-10.0) 03/02/19 08:08 Eos % (Auto) 3.8 % (0.0-4.0) 03/02/19 08:08 Baso % (Auto) 1.8 % (0.0-2.0) 03/02/19 08:08 Neut # (Auto) 3.7 K/uL (1.8-7.0) 03/02/19 08:08 Lymph # (Auto) 1.2 K/uL (1.0-4.3) 03/02/19 08:08 Mercer # (Auto) 0.5 K/uL (0.0-0.8) 03/02/19 08:08 Eos # (Auto) 0.2 K/uL (0.0-0.7) 03/02/19 08:08 Baso # (Auto) 0.1 K/uL (0.0-0.2) 03/02/19 08:08 pO2 30 mm/Hg (30-55) 02/28/19 23:30 VBG pH 7.35 (7.32-7.43) 02/28/19 23:30 VBG pCO2 44 mmHg (40-60) 02/28/19 23:30 VBG HCO3 22.6 mmol/L 02/28/19 23:30 VBG Total CO2 25.7 mmol/L (22-28) 02/28/19 23:30 VBG O2 Sat (Calc) 56.5 % (40-65) 02/28/19 23:30 VBG Base Excess -1.5 mmol/L (0.0-2.0) L 02/28/19 23:30 VBG Potassium 4.1 mmol/L (3.6-5.2) 02/28/19 23:30 Sodium 127.0 mmol/l (132-148) L 02/28/19 23:30 Chloride 88.0 mmol/L (98-107) L 02/28/19 23:30 Glucose 514 mg/dl (65-105) H* 02/28/19 23:30 Lactate 3.1 mmol/L (0.7-2.1) H 02/28/19 23:30 Crit Value Called To Dr marroquin 02/28/19 23:30 Crit Value Called By Veda hall rt 02/28/19 23:30 Crit Value Read Back Y 02/28/19 23:30 Blood Gas Notified Time 5431 02/28/19 23:30 Sodium 135 mmol/L (132-148) 03/02/19 08:08 Potassium 3.8 mmol/L (3.6-5.2) 03/02/19 08:08 Chloride 99 mmol/L (98-107) 03/02/19 08:08 Carbon Dioxide 24 mmol/L (22-30) 03/02/19 08:08 Anion Gap 15 (10-20) 03/02/19 08:08 BUN 32 mg/dL (7-17) H 03/02/19 08:08 Creatinine 1.4 mg/dL (0.7-1.2) H 03/02/19 08:08 Est GFR ( Amer) 45 03/02/19 08:08 Est GFR (Non-Af Amer) 38 03/02/19 08:08 POC Glucose (mg/dL) 295 mg/dL (65-110) H 03/02/19 16:03 Random Glucose 120 mg/dL (65-105) H D 03/02/19 08:08 Hemoglobin A1c 8.6 % (4.2-6.5) H 03/01/19 00:29 Lactic Acid 1.3 mmol/L (0.7-2.1) 03/01/19 11:07 Calcium 9.6 mg/dl (8.6-10.4) 03/02/19 08:08 Phosphorus 3.3 mg/dL (2.5-4.5) 03/02/19 08:08 Magnesium 1.7 mg/dL (1.6-2.3) 03/02/19 08:08 Total Bilirubin 0.6 mg/dL (0.2-1.3) 03/02/19 08:08 AST 47 U/L (14-36) H D 03/02/19 08:08 ALT 25 U/L (9-52) 03/02/19 08:08 Alkaline Phosphatase 235 U/L (38-126) H 03/02/19 08:08 NT-Pro-B Natriuret Pep 2850 pg/mL (0-900) H 03/01/19 07:57 Total Protein 6.6 g/dL (6.3-8.3) 03/02/19 08:08 Albumin 3.6 g/dL (3.5-5.0) 03/02/19 08:08 Globulin 2.9 gm/dL (2.2-3.9) 03/02/19 08:08 Albumin/Globulin Ratio 1.2 (1.0-2.1) 03/02/19 08:08 Triglycerides 164 mg/dL (0-149) H D 03/01/19 07:57 Cholesterol 252 mg/dL (0-199) H 03/01/19 07:57 LDL Cholesterol Direct 155 mg/dL (0-129) H 03/01/19 07:57 HDL Cholesterol 54 mg/dL (30-70) 03/01/19 07:57 Venous Blood Potassium 4.1 mmol/L (3.6-5.2) 02/28/19 23:30 Urine Color Yellow (YELLOW) 03/01/19 12:08 Urine Clarity Clear (Clear) 03/01/19 12:08 Urine pH 5.0 (5.0-8.0) 03/01/19 12:08 Ur Specific Clark 1.010 (1.003-1.030) 03/01/19 12:08 Urine Protein Negative mg/dL (NEGATIVE) 03/01/19 12:08 Urine Glucose (UA) 3+ mg/dL (Normal) H 03/01/19 12:08 Urine Ketones Negative mg/dL (NEGATIVE) 03/01/19 12:08 Urine Blood Negative (NEGATIVE) 03/01/19 12:08 Urine Nitrate Negative (NEGATIVE) 03/01/19 12:08 Urine Bilirubin Negative (NEGATIVE) 03/01/19 12:08 Urine Urobilinogen Normal mg/dL (0.2-1.0) 03/01/19 12:08 Ur Leukocyte Esterase Neg Dalton/uL (Negative) 03/01/19 12:08 Urine WBC (Auto) 2 /hpf (0-5) 03/01/19 12:08 Urine RBC (Auto) 1 /hpf (0-3) 03/01/19 12:08 Ur Squamous Epith Cells 2 /hpf (0-5) 03/01/19 12:08 B-Hydroxybutyrate 0.82 mM (0.02-0.27) H 02/28/19 22:54 Hepatitis A IgM Ab Negative (NEGATIVE) 03/01/19 07:57 Hep Bs Antigen Negative (NEGATIVE) 03/01/19 07:57 Hep B Core IgM Ab Negative (NEGATIVE) 03/01/19 07:57 Hepatitis C Antibody Negative (NEGATIVE) 03/01/19 07:57 - Hospital Course Hospital Course: HPI: 68 year old female with a past medical history of IDDM, cad (s/p CABG), hypertension, and hyperlipidemia who was brought in by EMS after having elevated blood sugars that began this morning. Per patient, she woke up this morning and checked her blood sugar around 9a.m. that read high. She reports she took 15 units of Humalog after that. She continued to check her blood sugar every hour for the remainder of the day and each time it read "high". She was with her sister and her son who urged her to go to the hospital as a result. In conjunction with the elevated blood sugar she also noted polyuria and polydypsia that began around the same time as her blood sugars began to read as high. Of note, patient recently underwent a CABG at [facility] for left main artery disease. While in Cardiac rehab, patient states the doctors there changed her medications around, however was unable to tell me the names during the interview. She denies any fevers, chills, nausea, vomiting, chest pain, abdominal pain, dizziness, syncopal episodes, or any other complaints. During hospital course: Patient found to be in DKA, with open anion gap. Gap closed with fluids and insulin. Patients blood sugars controlled. Endocrine consulted and had insulin regimen adjusted. Chronic medical problems controlled with medical therapy as per home medications. Above is only a summary of patient stay. See EMR for full details. Below are discharge instructions provided to the patients. Patient is stable for discharge per Dr. Oden. Patient is to stop all diabetes medications she is on at home. This includes all old insulin regimens, and metformin and other oral medications. Patient should take the following insulin regime: - Levemir 10 units before breakfast - Levemir 15 untis before dinner - Humalog 5 units before each meal; however, please check blood sugars prior to take. If blood sugars are less than 120, please take the 5 units immediately after eating. If blood sugars are greater than 120 then take the 5 units prior to the meal. Please continue all other home medications: - Aspirin 81 mg, one tablet daily, per mouth - Plavix 75 mg, one tablet daily, per mouth - Lasix 40 mg, one tablet daily, per mouth - Metoprolol tartrate 100 mg, one tablet, twice daily (please space out 12 hours apart), per mouth - Potassium chloride 10 meq, one tablet daily, per mouth - Hydralizine 50 mg, every 8 hours, per mouth - amlodipine 10 mg, one tablet daily, per mouth Please call Dr. Bennett if blood sugars are greater than 300. Please also call Dr. Bennett every 3-4 days with blood sugar updates. Continue measuring blood sugars before each meal and at bedtime. Please follow up with your primary doctor, Dr. Gaston within one week. Please follow up with your journalism professor within one week. If any of the symptoms worsen, arise, please return to your nearest medical facility. Discharge Exam - Head Exam Head Exam: ATRAUMATIC, NORMAL INSPECTION - Eye Exam Eye Exam: EOMI, Normal appearance - ENT Exam ENT Exam: Mucous Membranes Moist - Respiratory Exam Respiratory Exam: NORMAL BREATHING PATTERN. absent: Decreased Breath Sounds, Clear to PA & Lateral, Respiratory Distress - GI/Abdominal Exam GI & Abdominal Exam: Normal Bowel Sounds. absent: Distended, Firm, Guarding, Tenderness - Extremities Exam Extremities exam: full ROM Additional comments: no pedal edema, no calf tenderness - Back Exam Back exam: absent: CVA tenderness (L), CVA tenderness (R) - Neurological Exam Neurological exam: Alert, Oriented x3 - Psychiatric Exam Psychiatric exam: Normal Affect, Normal Mood - Skin Skin Exam: Dry, Intact, Normal Color, Warm Discharge Plan - Discharge Medications Prescriptions: Insulin Detemir [Levemir] 15 unit SC ACD 30 Days #1 ml Insulin Detemir [Levemir] 10 unit SC ACB 30 Days #1 unit Insulin Lispro [Humalog (Insulin Lispro)] 5 unit SQ ACTID 30 Days #1 cartridge - Follow Up Plan Condition: FAIR Disposition: HOME/ ROUTINE Instructions: Insulin Detemir, Heart Healthy Diet, Diabetes Exchange Diet, Hyperglycemia, Adult (DC), Insulin Lispro, Diabetes and Diet, Diabetic Ketoacidosis (DC), Diabetic Ketoacidosis (GEN) Additional Instructions: Patient is stable for discharge per Dr. Oden. Patient is to stop all diabetes medications she is on at home. This includes all old insulin regimens, and metformin and other oral medications. Patient should take the following insulin regime: - Levemir 10 units before breakfast - Levemir 15 untis before dinner - Humalog 5 units before each meal; however, please check blood sugars prior to take. If blood sugars are less than 120, please take the 5 units immediately after eating. If blood sugars are greater than 120 then take the 5 units prior to the meal. Please continue all other home medications: - Aspirin 81 mg, one tablet daily, per mouth - Plavix 75 mg, one tablet daily, per mouth - Lasix 40 mg, one tablet daily, per mouth - Metoprolol tartrate 100 mg, one tablet, twice daily (please space out 12 hours apart), per mouth - Potassium chloride 10 meq, one tablet daily, per mouth - Hydralizine 50 mg, every 8 hours, per mouth - amlodipine 10 mg, one tablet daily, per mouth Please call Dr. Bennett if blood sugars are greater than 300. Please also call Dr. Bennett every 3-4 days with blood sugar updates. Continue measuring blood sugars before each meal and at bedtime. Please follow up with your primary doctor, Dr. Gaston within one week. Please follow up with your journalism professor within one week. If any of the symptoms worsen, arise, please return to your nearest medical facility. Referrals: Maryam Bennett MD [Staff Provider] -
[2019-03-02 17:50] VITALS: BP 111/50; PULSE 73; TEMP 98.1; O2SAT 95
--- NOTE | 2019-03-03 03:53 | CON ---
DATE: 03/01/2019 LOCATION: The patient currently is on [address] [place] [address], room #650, bed B. HISTORY OF PRESENT ILLNESS: The patient has been seen on 03/01/2019, at 11 p.m. This patient is a diabetic patient, well known to me for about 20 years now, has a history of diabetes with brittle glycemic control who recently has undergone a bypass cardiac surgery. The patient presented to emergency room due to her glucose levels rising high to as high as 800 after the discharge from physical therapy place and then subsequently being home for about 1 or 2 days. The patient has come with elevated glucose levels to over 500 range, but not in diabetic ketoacidosis. The family history is positive for diabetes mellitus in many family members. The patient has been Dr. Gaston's patient for many years and has been on multiple medications for blood pressure but only recently diagnosed with coronary artery heart disease. It took me about 5 years to convince the patient to go to see a heart doctor and have a routine cardiac testing, which she has undergone, and subsequently, was diagnosed with multiple coronary artery occlusions which led to this CABG surgery recently and then rehab. The patient was noncompliant with medications regarding the insulin or all agents for diabetes management always. She took it upon herself to inject or not inject various insulin products according to what she ate or what she did not eat or whatever she has felt was proper for her. That unfortunately led to poor results and it took 20 years to convince the patient to finally try to listen to suggested regimen for diabetes, which I doubt she will ever follow. ALLERGIES: NONE. MEDICATIONS: Prior to admission, diabetic medications included glimepiride 4 mg twice a day, metformin ER 500 mg only once a day due to her gastrointestinal sensitivity. She could not tolerate her dosages. She also was on NPH insulin at night and regular Humulin as well as Humalog 3 to 4 times a day, which the patient took upon herself against medical advice deciding dosages on her own. She never . The patient had not seen an airline customer service agent also for a while, and in general, it was very impossible to achieve any cooperation on her side, and basically achieve any diabetes control over years at all. Recently, on her blood work, her hemoglobin A1c was between 8 and 9, many times previously 10 or 11. The patient always had excuses to explain why that is so. Most recent examination of blood work revealed C-peptide level to be less than 1, which means she has become completely insulin dependent yielding her diagnosis as WINNIE. The patient basically entered a hospital with stable vital signs. No fever, no cough, or major complaints. Basically, the admission was based on her high glucose levels, which could have been managed of course on the outpatient basis. PHYSICAL EXAMINATION: GENERAL: When the patient was seen, she was already asleep. She was not complaining. Her intravenous was just started as I recommended 40 mL per hour. VITAL SIGNS: Her vital signs were stable. HEENT: Her head and neck unremarkable. CHEST: Clear. ABDOMEN: Soft. EXTREMITIES: No edema is noticed. LABORATORY DATA: Blood work reveals glucose levels to be over 500, creatinine 1.56. Electrolytes were essentially stable. Her hemoglobin A1c was 11.1. CBC was essentially normal. The patient has received sliding scale since the admission at high dose with regular Novolin insulin only and no other treatments. IMPRESSION: The impression from endocrine standpoint is, more than 25 or 30-year-old history of diabetes mellitus brittle in a patient who is very noncompliant, on poor diet, who recently had undergone coronary artery bypass graft surgery and now admitted for uncontrolled diabetes mellitus. There is no evidence of diabetic ketoacidosis. PLAN: The plan of therapy for this patient right now would be to discontinue any previous oral hypoglycemic agents and start her on a new regimen of insulin only, Levemir insulin 10 units in the morning and 20 units in the evening, and Humalog insulin 5 units 3 times a day with meals only. The patient would be re-instructed regarding her diabetes and [id number] diet as soon as the diabetic dietary staff is available. Again, this patient has a poor prognosis due to multiple risk factors and lack of cooperating that she showed over years. I will be following her closely with you and then subsequently after discharge in my office. Thank you so much. Maryam Bennett MD
== END 2019-03-02 18:16 | disposition home or self-care (01) ==
LOC: C.ER 22:11 → C.9E 23:53 → C.6T 03-01 00:30
PROVIDERS: ADMIT Internal Medicine; ATTEND Internal Medicine
DX: E11.10 Type 2 diabetes mellitus with ketoacidosis without coma (principal); E11.22 Type 2 diabetes mellitus with diabetic chronic kidney disease; E78.00 Pure hypercholesterolemia, unspecified; I12.9 Hypertensive chronic kidney disease with stage 1 through stage 4 chronic kidney disease, or unspecified chronic kidney disease; N18.9 Chronic kidney disease, unspecified; I25.10 Atherosclerotic heart disease of native coronary artery without angina pectoris; M81.0 Age-related osteoporosis without current pathological fracture; Z79.4 Long term (current) use of insulin; Z95.1 Presence of aortocoronary bypass graft; Z91.14 Patient's other noncompliance with medication regimen
CPT/HCPCS: 36415; 71045; 80053; 80061; 80074; 81001; 82009; 82803; 82948; 83036; 83605; 83735; 83880; 84100; 85025; 93005; 96361; 96372; 96374; 99285; G0378; J1644; J7030